=== PATIENT | female | born 1990 | race Caucasian/White ===

== ENCOUNTER 2020-11-18 20:06 | Emergency (ER) | payer OTHER ==
[2020-11-18] MEDS ORDERED: ALUM & MAG HYDROX-SIMETHICONE 30 ML, LIDOCAINE VISCOUS 2% 15 ML PO ONE ×2 (20:21)
--- NOTE | 2020-11-18 20:21 | ED.PDOC ---
History of Present Illness - General Chief Complaint: Chest Pain/MN Stated Complaint: chest pain, sob Time Seen by Provider: 11/18/20 20:09 Source: patient, RN notes reviewed, Vital Signs reviewed, EMS notes reviewed, EMS, old records Exam Limitations: no limitations - History of Present Illness Initial Comments: 30 yo F with hx of seizures, GERD and panic attacks was at work at [employer], just finished her lunch of chicken wings when she developed substernal chest pain, burning in nature. Did not radiate. She then became short of breath, and had tingling in her arms and legs. States she still feels the burning sensation. is not on seizure medication, does not follow neurologist. Allergies/Adverse Reactions: Allergies NO KNOWN ALLERGY Allergy (Verified 12/21/14 01:20) Review of Systems - Review of Systems Constitutional: States: malaise. Denies: chills, fever EENTM: Denies: throat pain, mouth pain Respiratory: States: cough, short of breath Cardiology: States: chest pain. Denies: palpitations, syncope Gastrointestinal/Abdominal: Denies: abdominal pain, nausea, vomiting Genitourinary: Denies: pain Musculoskeletal: Denies: joint pain, joint swelling, muscle pain Skin: Denies: rash Neurological: States: paresthesia, tingling. Denies: seizure Endocrine: Denies: unexplained weight loss Hematologic/Lymphatic: Denies: easy bleeding, easy bruising Past Medical History (General) - Patient Medical History Hx Seizures: Yes Hx Stroke: No Hx Dementia: No Hx Asthma: No Hx of COPD: No Hx Cardiac Disorders: No Hx Congestive Heart Failure: No Hx Pacemaker: No Hx Hypertension: No Hx Thyroid Disease: No Hx Diabetes: No Hx Renal Disease: No Hx Cancer: No Hx Hepatitis B: No - Vaccination History Hx Tetanus, Diphtheria Vaccination: No Hx Influenza Vaccination: No Hx Pneumococcal Vaccination: No - Social History Hx Tobacco Use: Yes Hx Alcohol Use: No Hx Substance Use: No Hx Substance Use Treatment: No Hx Depression: No - Female History Patient : Yes Family Medical History - Family History Mother Family History: Unknown Living Status: Still Living Physical Exam - Physical Exam General Appearance: Alert, Comfortable, No apparent distress, Well Developed, Well Groomed, Well Hydrated, Well Nourished Eyes, Ears, Nose, Throat Exam: PERRL/EOMI, normal ENT inspection, TMs normal Neck: non-tender, full range of motion, supple, normal inspection Respiratory: chest non-tender, lungs clear, normal breath sounds, no respiratory distress, no accessory muscle use Cardiovascular/Chest: normal peripheral pulses, regular rate, rhythm, no edema, no gallop, no murmur Peripheral Pulses: radial,right: 2+, radial,left: 2+ Gastrointestinal/Abdominal: normal bowel sounds, non tender, soft Rectal Exam: deferred Extremity: normal range of motion, non-tender, normal inspection, no pedal edema, no calf tenderness, normal capillary refill 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 cardiac risk score 1. patient given GI Cocktail. symptoms slightly improved. patient given Ativan, symptoms improved. The data reviewed when caring for this patient included: nurse notes, prior records, etc. The history and assessments from nurses notes were reviewed and considered, and the patient's home medication list was also reviewed and considered. My assessment and the results of testing completed here in the ED were discussed with the patient. All questions were answered, and they express understanding of my assessment and the plan. They have been instructed to return if their symptoms worsen, and have been asked to follow up with their primary care physician to recheck today's presenting complaint. patient discharged home in stable condition. Aurora Torres DO #[id number] - Results/Orders Results/Orders: 11/18/20 20:15 EKG STAT Laboratory Results WBC 8.5 K/mm3 (4.8-10.8) 11/18/20 20:21 RBC 4.47 M/mm3 (4.20-5.40) 11/18/20 20:21 Hgb 14.7 gm/dL (12.0-16.0) 11/18/20 20:21 Hct 43.0 % (36.0-47.0) 11/18/20 20:21 MCV 96.2 fl (81.0-99.0) 11/18/20 20:21 MCH 32.9 pg (27.0-31.0) H 11/18/20 20:21 MCHC 34.2 g/dL (33.0-37.0) 11/18/20 20:21 RDW 14.2 % (11.5-14.5) 11/18/20 20:21 Plt Count 352 K/mm3 (130-400) 11/18/20 20:21 MPV 7.7 fl (7.40-10.4) 11/18/20 20:21 Absolute Neuts (auto) 5.00 K/uL (1.8-6.8) 11/18/20 20:21 Absolute Lymphs (auto) 2.70 K/uL (1.0-3.4) 11/18/20 20:21 Absolute Monos (auto) 0.60 K/uL (0.2-0.8) 11/18/20: Absolute Eos (auto) 0.10 K/uL (0.0-0.4) 11/18/20 20: Absolute Basos (auto) 0.10 K/uL (0.0-0.1) 11/18/20 20: Neutrophils % 58.7 % (42.0-78.0) 11/18/20 20:21 Lymphocytes % 31.4 % (20.0-50.0) 11/18/20 20: Monocytes % 7.3 % (2.0-9.0) 11/18/20: Eosinophils % 1.7 % (1.0-5.0) 11/18/20 20: Basophils % 0.9 % (0.0-2.0) 11/18/20 20:21 D-Dimer, Quantitative < 131.0 ng/ml (131-400) L 11/18/20 20:21 Sodium 139 mmol/L (135-145) 11/18/20 20:21 Potassium 3.2 mmol/L (3.6-5.0) L 11/18/20 20:21 Chloride 101 mmol/L (101-111) 11/18/20 20:21 Carbon Dioxide 27 mmol/L (21-31) 11/18/20 20:21 Anion Gap 14.2 (12-18) 11/18/20 20:21 BUN 10 mg/dL (7-18) 11/18/20 20:21 Creatinine 0.64 mg/dL (0.6-1.3) 11/18/20 20:21 BUN/Creatinine Ratio 15.6 (10-20) 11/18/20 20:21 Random Glucose 93 mg/dL (70-105) 11/18/20 20:21 Serum Osmolality 276.3 mOsm/L (275-295) 11/18/20 20:21 Calcium 8.7 mg/dL (8.4-10.2) 11/18/20 20:21 Total Bilirubin 0.3 mg/dL (0.2-1.0) 11/18/20 20:21 AST 101 IU/L (10-42) H 11/18/20 20:21 ALT 172 IU/L (10-60) H 11/18/20 20:21 Alkaline Phosphatase 101 IU/L (42-121) 11/18/20 20:21 Troponin I < 0.02 ng/mL (0.01-0.05) 11/18/20 20:21 Serum Total Protein 8.4 gm/dL (6.4-8.2) H 11/18/20 20:21 Albumin 4.1 g/dl (3.2-5.5) 11/18/20 20:21 Globulin 4.3 gm/dL (2.3-3.5) H 11/18/20 20:21 Albumin/Globulin Ratio 1.0 (1.1-1.9) L 11/18/20 20:21 Urine Color Yellow (Yellow) 11/18/20 20:50 Urine Appearance Cloudy (Clear) 11/18/20 20:50 Urine pH 7.5 (4.5-7.8) 11/18/20 20:50 Ur Specific [place] 1.020 (1.005-1.030) 11/18/20 20:50 Urine Protein Negative mg/dL 11/18/20 20:50 Urine Glucose (UA) Negative mg/dL (Negative) 11/18/20 20:50 Urine Ketones Negative mg/dL (NEGATIVE) 11/18/20 20:50 Urine Blood Negative (Negative) 11/18/20 20:50 Urine Nitrite Negative 11/18/20 20:50 Urine Bilirubin Negative (NEGATIVE) 11/18/20 20:50 Urine Urobilinogen 0.2 mg/dL (0.2-1.0) 11/18/20 20:50 Ur Leukocyte Esterase Trace (Negative) H 11/18/20 20:50 Urine RBC 0 /hpf 11/18/20 20:50 Urine WBC 3-5 /hpf H 11/18/20 20:50 Ur Epithelial Cells 5-10 /hpf 11/18/20 20:50 Urine Bacteria 2+ H 11/18/20 20:50 Urine Mucus Small 11/18/20 20:50 Urine HCG, Qual Negative (NEGATIVE) 11/18/20 20:56 - EKG/XRAY/CT EKG: Sinus - hr 78 Comments: poor r wave progression, no prior for comparison. XRAY: chest - no acute cardiopulmonary pathology Departure - Departure Clinical Impression: Shortness of breath Chest pain Qualifiers: Chest pain type: unspecified Qualified Code(s): R07.9 - Chest pain, unspecified Time of Disposition: 21:09 Disposition: Discharge to Home or Self Care Departure Forms: ED Discharge - Pt. Copy, Patient Portal Self Enrollment Instructions: DI for Chest Pain, Chest Pain (DC), Panic Disorder Diet: resume usual diet Activity: increase activity as tolerated Referrals: ELIAS MOSCOSO [Primary Care Provider] - 1 Week
[2020-11-18 20:26] VITALS: O2SAT 98
--- NOTE | 2020-11-18 20:37 | RAD ---
EXAM DESCRIPTION: Chest x-ray one view CLINICAL HISTORY:30 years Female, cp Comparison: None FINDINGS: No focal lung consolidation. No pleural effusion. No pneumothorax. Cardiac and mediastinal silhouette is unremarkable. No acute osseous abnormality. Soft tissues are unremarkable. IMPRESSION: No acute findings. No focal lung consolidation. Electronically signed by: Kar Arora DO 11/18/2020 8:36 PM [facility]
[2020-11-18 21:42] VITALS: BP 156/94; TEMP 97.3
== END 2020-11-18 21:42 | disposition home or self-care (01) ==
LOC: ER 20:06
DX: R07.2 Precordial pain (principal); R06.02 Shortness of breath; R56.9 Unspecified convulsions; K21.9 Gastro-esophageal reflux disease without esophagitis; F17.200 Nicotine dependence, unspecified, uncomplicated; Z20.822 Contact with and (suspected) exposure to COVID-19
CPT/HCPCS: 36415; 71045; 80053; 81001; 81025; 84484; 85025; 85379; 87635; 93005; J2060

== ENCOUNTER 2020-11-24 16:40 | Emergency (ER) | payer OTHER ==
[2020-11-24] MEDS ORDERED: LORazepam 0.5 MG TAB PO ONE (17:31)
[2020-11-24] MEDS ORDERED: DIVALPROEX SODIUM DR 250 MG TAB PO ONE (17:31)
--- NOTE | 2020-11-24 18:51 | ED.PDOC ---
History of Present Illness - General Chief Complaint: Respiratory Problem Stated Complaint: SOB, dizzy, chest fluttering Time Seen by Provider: 11/24/20 17:30 Source: patient, RN notes reviewed, Vital Signs reviewed, EMS notes reviewed Exam Limitations: no limitations - History of Present Illness Initial Comments: The patient is a 30 year old with history of anxiety, epilepsy who presents to the ED with shortness of breath and palpitations. 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 She states that she was at work when she had onset of dizziness, tingling all over, shortness of breath, chills, feeling flushed, feeling like her heart "slowed down," and like she might pass out. Her symptoms lasted for an hour and are resolved now. She is unable to identify any modifying factors. She was seen in the ED a few days ago for the same thing and was diagnosed with anxiety. She states that she is not particularly anxious about anything. She says that she has previously been on atarax and clonazepam for her anxiety but she has been off these medications for many months. She also has been taking keppra for her seizures but she has been out of this medication for several mon ths as well due to intolerance of side effects. She does not have any complaints currently. Allergies/Adverse Reactions: Allergies NO KNOWN ALLERGY Allergy (Verified 11/24/20 17:44) Home Medications: Ambulatory Orders hydrOXYzine HCl [Atarax] 25 mg PO Q6HR #30 tab 11/24/20 Review of Systems - Review of Systems Constitutional: Denies: chills, fever EENTM: States: no symptoms reported Respiratory: States: short of breath. Denies: cough Cardiology: States: chest pain, palpitations. Denies: syncope Gastrointestinal/Abdominal: States: nausea. Denies: abdominal pain, diarrhea, vomiting Musculoskeletal: States: no symptoms reported Skin: States: no symptoms reported Neurological: States: anxiety, tingling, tremors Endocrine: States: flushing Hematologic/Lymphatic: States: no symptoms reported All other Systems: Reviewed and Negative Past Medical History (General) - Patient Medical History Hx Seizures: Yes Hx Stroke: No Hx Dementia: No Hx Asthma: No Hx of COPD: No Hx Cardiac Disorders: No Hx Congestive Heart Failure: No Hx Pacemaker: No Hx Hypertension: No Hx Thyroid Disease: No Hx Diabetes: No Hx Renal Disease: No Hx Cancer: No Surgical History: no surgical history - Vaccination History Hx Tetanus, Diphtheria Vaccination: No Hx Influenza Vaccination: No Hx Pneumococcal Vaccination: No - Social History Hx Tobacco Use: Yes Hx Chewing Tobacco Use: No Hx Alcohol Use: No Hx Substance Use: No Hx Substance Use Treatment: No Hx Depression: No Hx Physical Abuse: No Hx Emotional Abuse: No Hx Suspected Abuse: No - Female History Patient : Yes Family Medical History - Family History Mother Family History: Unknown Living Status: Still Living Physical Exam - Physical Exam General Appearance: Alert, Anxious - moderately, Comfortable, No apparent d istress Eye Exam: bilateral normal Ears, Nose, Throat: hearing grossly normal Respiratory: lungs clear, normal breath sounds, no respiratory distress Cardiovascular/Chest: normal peripheral pulses, regular rate, rhythm, no murmur Gastrointestinal/Abdominal: normal bowel sounds, non tender, soft Rectal Exam: deferred Neurologic: no motor/sensory deficits, alert, normal mood/affect, oriented x 3 Skin Exam: normal color Progress - Progress Progress: 11/24/20 18:51 Patient reassessed, feeling well. No symptoms in the ED. Likely related to anxiety. Discussed findings with the patient. Will treat anxiety with atarax for now. I will start her on depakote for her seizures and she will follow up with her neurologist. Discussed following up with PCP as an outpatient for holter monitoring if she has persistent palpitations. Home care instructions and return indications reviewed. - Results/Orders Results/Orders: 11/24/20 18:00 EKG STAT Laboratory Results - last 24 hr 11/24/20 11/24/20 11/24/20 17:30 18:10 18:10 WBC 9.1 RBC 4.63 Hgb 15.2 Hct 44.6 MCV 96.4 MCH 32.7 H MCHC 34.0 RDW 14.4 Plt Count 306 MPV 7.5 Absolute Neuts (auto) 5.70 Absolute Lymphs (auto) 2.60 Absolute Monos (auto) 0.60 Absolute Eos (auto) 0.10 Absolute Basos (auto) 0.10 Neutrophils % 62.8 Neutrophils % (Manual) 50.0 Lymphocytes % 28.3 Lymphocytes % (Manual) 37.0 Monocytes % 6.8 Monocytes % (Manual) 5.0 Eosinophils % 1.5 Basophils % 0.6 Band Neutrophils 6.0 H Eosinophils 2.0 Platelet Estimate Normal Sodium 137 Potassium 3.8 Chloride 101 Carbon Dioxide 24 Anion Gap 15.8 BUN 10 Creatinine 0.64 BUN/Creatinine Ratio 15.6 Random Glucose 89 Serum Osmolality 272.3 L Calcium 8.7 TSH 2.35 Serum HCG, Qual 11/24/20 18:10 WBC RBC Hgb Hct MCV MCH MCHC RDW Plt Count MPV Absolute Neuts (auto) Absolute Lymphs (auto) Absolute Monos (auto) Absolute Eos (auto) Absolute Basos (auto) Neutrophils % Neutrophils % (Manual) Lymphocytes % Lymphocytes % (Manual) Monocytes % Monocytes % (Manual) Eosinophils % Basophils % Band Neutrophils Eosinophils Platelet Estimate Sodium Potassium Chloride Carbon Dioxide Anion Gap BUN Creatinine BUN/Creatinine Ratio Random Glucose Serum Osmolality Calcium TSH Serum HCG, Qual Negative - EKG/XRAY/CT Comments: 1635 normal sinus rhythm at 65, nl axis, no intervals, no STEMI Departure - Departure Clinical Impression: Palpitations, Anxiety Time of Disposition: 19:04 Disposition: Discharge to Home or Self Care Departure Forms: ED Discharge - Pt. Copy, Patient Portal Self Enrollment Instructions: Anxiety, Adult (DC), Palpitations (DC) Diet: resume usual diet Activity: increase activity as tolerated Referrals: ELIAS MOSCOSO [Primary Care Provider] - 1-2 Weeks Prescriptions: hydrOXYzine HCl [Atarax] 25 mg PO Q6HR #30 tab Home Medications: Ambulatory Orders hydrOXYzine HCl [Atarax] 25 mg PO Q6HR #30 tab 11/24/20
[2020-11-24 19:25] VITALS: BP 135/86; TEMP 97.6; O2SAT 100
== END 2020-11-24 19:20 | disposition home or self-care (01) ==
LOC: ER 16:40
DX: R00.2 Palpitations (principal); F41.9 Anxiety disorder, unspecified; G40.909 Epilepsy, unspecified, not intractable, without status epilepticus; F17.200 Nicotine dependence, unspecified, uncomplicated